=== PATIENT | female | born 1960 | race Caucasian/White ===

== ENCOUNTER 2019-08-11 09:00 | Inpatient (IN) | payer OTHER ==
--- NOTE | 2019-08-03 16:25 | HP ---
Amended report to enter cosigning physician on report. HISTORY AND PHYSICAL: DATE OF ADMISSION/SURGERY: 08/11/19 DATE OF OFFICE VISIT: 08/03/19 SURGEON: Jaja Slater MD* PROCEDURE: Left total hip arthroplasty. CHIEF COMPLAINT: Left hip pain. HISTORY OF PRESENT ILLNESS: Ms. Beltran is a 58-year-old female with end-stage osteoarthritis of the left hip. She has failed conservative treatment and elected to proceed with a left total hip arthroplasty. PAST MEDICAL HISTORY: Cervical cancer. PAST SURGICAL HISTORY: Cholecystectomy, left knee arthroscopy, cone biopsy, and a left total knee arthroplasty. CURRENT MEDICATIONS: 1. Magnesium. 2. Vitamin B12. 3. Vitamin D3. 4. Vitamin C. 5. Meloxicam 15 mg a day. ALLERGIES: No known drug allergies. FAMILY HISTORY: Hypertension and coronary artery disease. SOCIAL HISTORY: She is a 58-year-old female. She lives with her . She does not smoke. REVIEW OF SYSTEMS: A complete 14-point review of systems was reviewed with the patient and was all negative or noncontributory. She denies a history of DVT, PE, hepatitis, HIV, or anesthesia problems. PHYSICAL EXAMINATION GENERAL: She is well developed, well nourished, in no acute distress. VITAL SIGNS: She stands 65 inches tall, weighs 256 pounds. Her blood pressure is 128/90, her heart rate is 84. HEENT: Normocephalic, atraumatic. NECK: Supple. No palpable lymph nodes. PULMONARY: The lungs are clear to auscultation bilaterally. CARDIO: Regular rate and rhythm. Strong S1, S2. ABDOMEN: Soft, nontender, nondistended. MUSCULOSKELETAL: Left lower extremity: The skin is intact. There are no open wounds or abrasions. She walks with an antalgic-type gait favoring her left hip. She has decreased internal and external rotation of the left hip. She is able to dorsiflex and plantar flex. She has a 2+ dorsalis pedis pulse and intact sensation. NEUROLOGICAL: She is alert and oriented x3. ASSESSMENT AND PLAN: Ms. Beltran is a 58-year-old female with end-stage osteoarthritis of the left hip. She has failed conservative treatment and elected to proceed with a left total hip arthroplasty. The surgery is scheduled for 08/11/[address] Slater discussed the risks and benefits of the surgery at today's visit and all of her questions were answered. She will follow up with Dr. Slater 2 weeks after the surgery. NARCISA DOSS [id number]/[facility] #: [id number] GIOVANNA
[~2019-08-11 09:00] MED LIST: Acetaminophen TAB* 325 MG PO ONE; Buffered Lidocaine 1% SYRIN* 1 ML/SYRINGE INTRADERM ONE; Lactated Ringers 1000 ML Bag* 1,000 ML IV SCH; Tranexamic Acid 1,000 MG in NS 0.9% 50 ML* (outpatient use) IV SCH; celeCOXIB CAP* 200 MG PO ONE
[2019-08-11] MEDS ORDERED: celeCOXIB CAP* 200 MG ONE (09:06)
[2019-08-11] MEDS ORDERED: Acetaminophen TAB* 325 MG ONE (09:06)
[2019-08-11] MEDS ORDERED: ceFAZolin 2 GM PREMIX in ORs 2 GM/50 ML BAG ONE (09:07)
[2019-08-11] MEDS ORDERED: Midazolam* 1 MG/ML 2 ML VIAL (2 MG) ONE (10:19)
[2019-08-11] MEDS ORDERED: fentaNYL* 50 MCG/ML 2 ML VIAL (100 MCG VIAL) ONE (10:20)
[2019-08-11] MEDS ORDERED: Rocuronium* 10 MG/ML VIAL ONE ×2 (11:29→12:44)
[2019-08-11] MEDS ORDERED: ROPIVACAINE 5 MG/ML 30 ML BTL (0.5%) ONE ×2 (11:37→14:15)
[2019-08-11] MEDS ORDERED: Ondansetron INJ* 2 MG/ML VIAL ONE (11:51)
[2019-08-11] MEDS ORDERED: Dexamethasone IV* 4 MG/ML 1 ML (4 MG) ONE (11:51)
[2019-08-11] MEDS ORDERED: HYDROmorphone INJ1* 1 MG/ML SYRINGE ONE ×3 (12:10→14:56)
[2019-08-11] MEDS ORDERED: PROCHLORPERAZINE INJ 5 MG/ML 2 ML VIAL IV PRN (12:33)
[2019-08-11] MEDS ORDERED: oxyCODONE TAB* 5 MG TAB PO PRN ×2 (12:33→13:17)
[2019-08-11] MEDS ORDERED: diPHENhydraMINE IV* 50 MG/ML 1 ml VIAL (BENADRYL) IV PRN ×2 (12:33→13:17)
[2019-08-11] MEDS ORDERED: Naloxone* 0.4 MG/ML 1 ML VIAL IV PRN (12:33)
[2019-08-11] MEDS ORDERED: HYDROmorphone INJ1* 1 MG/ML SYRINGE IV PRN (12:33)
[2019-08-11] MEDS ORDERED: Metoprolol Tartrate IV* 1 MG/ML 5 ML VIAL ONE (12:38)
[2019-08-11] MEDS ORDERED: Magnesium Hydroxide LIQ* 30 ML UDC PO PRN (13:17)
[2019-08-11] MEDS ORDERED: Morphine INJ* 2 MG/ML 1 ML SYRINGE (TWO MG - NEW SYRINGE VERSION) IV PRN (13:17)
[2019-08-11] MEDS ORDERED: Cyclobenzaprine TAB* 10 MG PO PRN (13:17)
[2019-08-11] MEDS ORDERED: Polyethylene Glycol 3350* 17 GM PACKET PO PRN (13:17)
[2019-08-11] MEDS ORDERED: Ondansetron INJ* 2 MG/ML VIAL IV PRN (13:17)
[2019-08-11] MEDS ORDERED: diPHENhydraMINE PO* 25 MG PO PRN (13:17)
[2019-08-11] MEDS ORDERED: Ondansetron TAB* 4 MG PO PRN (13:17)
[2019-08-11] MEDS ORDERED: Glycopyrrolate IV* 0.2 MG/ML 1 ML VIAL ONE (14:12)
[2019-08-11] MEDS ORDERED: Neostigmine Methylsulfate* 3 MG/3 ML SYRINGE ONE (14:13)
[2019-08-11] MEDS ORDERED: Gabapentin CAP(*) 300 MG PO PRN (14:50)
[2019-08-11] MEDS: HYDROmorphone INJ1* 1 MG/ML SYRINGE IV PRN ×2 (14:57→15:10)
[2019-08-11] MEDS ORDERED: oxyCODONE TAB* 5 MG TAB ONE (15:13)
[2019-08-11] MEDS: Lactated Ringers 1000 ML Bag* 1,000 ML IV SCH (16:41)
[2019-08-11] MEDS: oxyCODONE/Acetamin 5/325 MG* TAB PO PRN (17:16)
[2019-08-11] MEDS: Ondansetron ODT TAB* 4 MG PO PRN (19:55)
--- NOTE | 2019-08-11 20:19 | OP ---
Operative Report - Blank - Operative Report Date of Operation: 08/11/19 Note: AMBER STILL 1960 Date Of Surgery: 08/11/19 Jaja Slater MD Senior Health Physics Technician: Teresa BREWSTER did help throughout the procedure with preparation of the hip, wound retraction, manipulation of the hip, and wound closure. Anesthesiologist: Dr. Jonas Anesthesia Type: General Preoperative Diagnosis: Left severe degenerative osteoarthritis of the hip Postoperative Diagnosis: As above Procedure Performed: Left Total Hip Arthroplasty with modifier for increased operative time due to morbid obesity Complications: None Specimen: Femoral head and acetabular reamings sent to pathology. Hardware used: This is uncemented Wallace total hip arthroplasty hardware for the femur a size 5 accolade II with 127 neck angle femoral component, for the acetabulum a size 48D trident II tritanium multihole shell, for the insert a size 32D trident X3 polyethylene insert, and for the femoral head a size 32 - 4 ceramic biolox V40 femoral head. Brief history/Indication: AMBER STILL was known in clinic and had a history of severe left hip pain. She failed conservative treatment with anti- inflammatories, pain pills, intra-articular injections and physical therapy. She elected to undergo left total hip arthroplasty due to continued pain and decreased quality of life. Radiographs showed severe end stage osteoarthritis of the hip with bone on bone contact. Informed consent was obtained from the patient. She understood the risks of surgery included but were not limited to: bleeding, infection, damage to nearby structures, intraoperative fracture, nerve palsy, failure of the hardware, early loosening, stiffness or loss of motion, dislocation, leg length discrepancy, anesthesia complications, stroke, heart attack, blood clot and . She wished to proceed. Intra-Operative findings: Intraoperatively the patient was noted to have severe loss of cartilage of the acetabulum and femoral head. The patient's morbidly obese body habitus significantly increased the operative time of this procedure , at least 60 additional minutes. Exposure, placement of implants and closure of the wound were complicated by her body habitus and operative time was lengthened. Description of the Procedure: AMBER STILL was identified in the preanesthesia unit. Her left hip was marked as the correct operative side. Informed consent was signed and placed in the chart. The patient was taken to the operating room and placed under anesthesia without complication. A grossman catheter was placed. The patient was placed on the peg board with all bony prominences well padded. The left lower extremity was prepped and draped in the usual sterile fashion. Preoperative time -out was made to correctly identify the patient, side and site. Appropriate intraoperative antibiotics were given within one hour of incision. A standard posterior incision was made and carried sharply down to the lateral fascia. There was 10cm of subcutaneous fat. A new 10 blade was used to make an incision in the fascia in line with the skin incision. A charnley retractor was placed. The piriformis and conjoined tendons were identified and elevated off the posterolateral femur using electrocautery. These were tagged with number 5 Ethibond. Next electrocautery was used to make a posterolateral capsular flap and this was tagged with number 5 Ethibonds. The hip was carefully dislocated. All portions of this approach and exposure were lengthened and took longer time due to the patient's morbid obesity. Lesser trochanter to the center of the femoral head was measured at 55 mm. The oscillating saw was used to make the femoral neck cut. The femoral head was carefully removed. The femur was retracted anteriorly and the acetabular retractors were placed. Long-handled knife was used to sharply remove any remaining labrum from the acetabular rim. The acetabulum was sequentially reamed up to a size 48. A bleeding subchondral bone bed was obtained. A trial liner was placed and had excellent fit and stability. A 48D cup with one screw was placed and had excellent stability with appropriate anteversion and abduction angle. A size 32D liner was impacted into the acetabular shell. The liner was checked for stability and was stable. Next attention was turned to preparation of the femoral canal. A canal finder was used to enter the proximal femur. The femoral canal was sequentially broached up to a size 5 femoral broach trial. A trial neck and 32 - 4 trial femoral head was chosen. Lesser trochanter to center of the femoral head measurement was satisfactory. The hip was reduced and taken through a range of motion. The hip was stable in all positions with good soft tissue tension and appropriate leg lengths. The hip was dislocated and all trials were removed. The final implant chosen was a accolade II size 5. This stem was impacted into the femoral canal without difficulty. The stem was stable with appropriate anteversion. The femoral head chosen was a 32 - 4 ceramic head. The head was impacted onto the femoral neck without difficulty. The final lesser trochanter to center of the femoral head measurement was satisfactory. The hip was reduced and taken through a range of motion. The hip was stable in all positions with good soft tissue tension and appropriate leg lengths. The hip was copiously irrigated with sterile saline. The previously tagged capsule and tendons were repaired to the posterolateral femur through two trochanteric drill holes. The lateral fascia layer was closed using number 1 vicryls. The rest of the incision was closed in a layered fashion using 0 and 2-0 vicryls. The skin was closed using 3-0 monocryl suture and Dermabond. Wound closure was more complex and took longer time due to the patient's morbid obesity. Sterile adaptic, 4x4s and paper tape was used to cover the incision. The patients anesthesia was reversed without difficulty. She was taken to the PACU in stable condition. Intended weight-bearing will be as tolerated with posterior hip precautions.
[2019-08-11] MEDS: ceFAZolin 1 GM ADVAN(*) 1 GM in NS 0.9% 50 ML* 50 ML IVPB SCH (20:23)
[2019-08-11] MEDS: Acetaminophen TAB* 325 MG PO SCH (21:29)
[2019-08-12] MEDS: Magnesium Hydroxide LIQ* 30 ML UDC PO SCH ×3 (00:26→20:03)
[2019-08-12] MEDS: Docusate CAP* 100 MG PO SCH ×3 (00:26→20:02)
[2019-08-12] MEDS: traMADol TAB* 50 MG PO PRN ×2 (00:43→11:13)
[2019-08-12] MEDS: oxyCODONE/Acetamin 5/325 MG* TAB PO PRN ×4 (02:00→20:01)
[2019-08-12] MEDS: Lactated Ringers 1000 ML Bag* 1,000 ML IV SCH ×2 (02:06→12:44)
[2019-08-12] MEDS: ceFAZolin 1 GM ADVAN(*) 1 GM in NS 0.9% 50 ML* 50 ML IVPB SCH ×2 (03:32→11:59)
[2019-08-12] MEDS: Acetaminophen TAB* 325 MG PO SCH ×3 (06:18→20:04)
[2019-08-12 06:40] LABS: Hematocrit 32 % (35-47); Hemoglobin 10.9 g/dL (12.0-16.0); Mean Platelet Volume 6.6 fL (7.4-10.4); Platelet Count 327 10^3/uL (150-450)
[2019-08-12 06:46] LABS: BUN/Creatinine Ratio 14.6 (8-20); Calcium 8.5 mg/dL (8.6-10.3); EGFR African American 86.3 (>60); EGFR Non-African American 71.4 (>60); Potassium 4.8 mmol/L (3.5-5.0)
[2019-08-12] MEDS: Apixaban* 2.5 MG TAB PO SCH ×2 (08:06→20:03)
[2019-08-12] MEDS: Vitamin THERAPEUTIC TAB PO SCH (08:06)
[2019-08-12] MEDS: Ondansetron ODT TAB* 4 MG PO PRN (11:11)
--- NOTE | 2019-08-12 12:52 | PN ---
Progress Note - Progress Note Date of Service: 08/12/19 SOAP: Subjective: [Pt was seen this morning sitting in chair. States that she is tired and has been a little dizzy today. She denies any chest pain or SOB, denies nausea or vomiting. She states that she has been slow to progress with PT and that she did not sleep well last night. ] Objective: [General: Pt is alert and oriented x3. NAD MSK, LLE: Dressing is c/d/i. +df/pf, calf soft and non tender. NVI, 2+ DP. Vital Signs Temp 97.7 F 08/12/19 11:14 Pulse 95 08/12/19 11:14 Resp 16 08/12/19 11:14 BP 126/45 08/12/19 11:14 Pulse Ox 100 08/12/19 11:14 Intake & Output 08/11/19 08/12/19 08/12/19 18:59 06:59 18:59 Intake Total 1188 502 9372 Output Total 715 500 Balance 1130 -35 790 Weight 251 lb 9.6 oz Intake: IV Fluids 50 980 LR 980 NS 50ML, Cefazolin 2G 50 IVPB 110 ABX - CEFAZOLIN 110 Oral 1080 680 200 Output: Urine 715 500 Other: Estimated Void Small ] Assessment: [POD 1 LTHA] Plan: [Eliquis 2.5 mg bid x 30 days Continue with PT Will evaluate tomorrow for possible discharge. ]
[2019-08-13] MEDS: oxyCODONE/Acetamin 5/325 MG* TAB PO PRN ×3 (04:03→12:23)
[2019-08-13] MEDS: Acetaminophen TAB* 325 MG PO SCH ×2 (05:41→12:32)
[2019-08-13 07:39] LABS: Hematocrit 28 % (35-47); Hemoglobin 9.7 g/dL (12.0-16.0); Mean Platelet Volume 6.3 fL (7.4-10.4); Platelet Count 279 10^3/uL (150-450)
--- NOTE | 2019-08-13 08:26 | PN ---
Progress Note - Progress Note Date of Service: 08/13/19 SOAP: Subjective: [Pt reports making some progress since yesterday. Slight dizziness when standing. L hip pain managed with po Percocet. Feels ready to go home later today after PT. Denies CP, SOB, nausea.] Objective: [A and O x 3, NAD. Seated eating breakfast. L hip dressing changed. Wound benign. Ecchymosis, no erythema or drainage. Calves soft, NT. Distal gross motor, NV function intact. Vital Signs: Temp Pulse Resp BP Pulse Ox 98.3 F 104 18 137/49 95 08/13/19 03:58 08/13/19 07:33 08/13/19 05:57 08/13/19 03:58 08/13/19 03:58 Laboratory Results - last 24 hr 08/13/19 07:12 Hgb 9.7 L Hct 28 L Plt Count 279 MPV 6.3 L ] Assessment: [58 you female s/p L DIMPLE POD#2] Plan: [PT Kamilla for DVT prophylaxis Percocet for pain Plan to D/C today with services F/U with Dr. Slater in 2 weeks]
[2019-08-13] MEDS: Magnesium Hydroxide LIQ* 30 ML UDC PO SCH (09:04)
[2019-08-13] MEDS: Vitamin THERAPEUTIC TAB PO SCH (09:05)
[2019-08-13] MEDS: Docusate CAP* 100 MG PO SCH (09:05)
[2019-08-13] MEDS: Apixaban* 2.5 MG TAB PO SCH (09:07)
[2019-08-13 11:17] VITALS: BP 128/58
--- NOTE | 2019-08-15 09:30 | DS ---
DISCHARGE SUMMARY: DATE OF ADMISSION: 08/11/19 DATE OF DISCHARGE: 08/13/19 ADMITTING PHYSICIAN: Jaja Slater MD * (DICTATED BY NARCISA VU) ADMITTING DIAGNOSES: 1. Left hip osteoarthritis. 2. History of cervical cancer. DISCHARGE DIAGNOSES: 1. Status post left total hip arthroplasty. 2. History of cervical cancer. PROCEDURE: Left total hip arthroplasty. CONSULTANTS: Physical Therapy and Occupational Therapy. BRIEF HISTORY: Ms. Beltran is a 58-year-old female with severe degenerative osteoarthritis of her left hip. She failed conservative treatment measures and elected to undergo a left total hip arthroplasty on 08/11/[address] Slater. HOSPITAL COURSE: Ms. Beltran was admitted to [facility] on 08/11/19. She underwent an uncomplicated left total hip arthroplasty. Postoperatively, she recovered on the short-stay surgical unit. Her Quintana catheter was removed on postoperative day 1 and she was able to urinate on her own. She advanced to a regular diet without difficulty. Her pain was well controlled with Percocet and she was restarted on home medications. Her vital signs and labs remained stable. She was able to bear weight as tolerated on the left lower extremity. She advanced appropriately with physical therapy and occupational therapy. Her DVT prophylaxis was Eliquis 2.5 mg b.i.d. By postoperative day #2, she was orthopedically and medically stable for discharge home with services. PHYSICAL EXAMINATION: General: On examination, the patient is noted to be calm and cooperative, in no acute distress. She is alert and oriented x3. Vital Signs: On day of discharge, temperature 98.3 degrees Fahrenheit, pulse rate 104, respiratory rate 16, O2 sat 95% on room air, blood pressure 137/49. Extremities: Examination of her left lower extremity demonstrates a dressing overlying the right hip, which is clean, dry, and intact. There is minimal blessing -incisional ecchymosis. Distally, she has +2 palpable DP pulse, 5/5 ankle dorsiflexion and plantar flexion. Sensation is intact to light touch. LABORATORY DATA: On day of discharge, hemoglobin 9.7 and hematocrit 28. RADIOGRAPHS: Postoperative radiographs of the left hip demonstrate a left total hip arthroplasty with satisfactory prosthesis placement and no acute bony abnormalities. DISCHARGE MEDICATIONS: 1. Magnesium. 2. Vitamin B12. 3. Vitamin D3. 4. Vitamin C. 5. Percocet 5/325 mg 1 to 2 tabs q.4 to 6 hours p.r.n. pain. 6. Eliquis 2.5 mg b.i.d. for 30 days. 7. Oxycodone 10 mg q.4 hours for breakthrough pain. 8. Colace 100 mg p.o. t.i.d. p.r.n. constipation. CONDITION ON DISCHARGE: Stable. DISCHARGE INSTRUCTIONS: Ms. Beltran is a 58-year-old female, postoperative day #2 status post left total hip arthroplasty, which was uncomplicated. She is orthopedically and medically stable to be discharged home with services. She has stable vital signs and labs. She will take 2.5 mg of Eliquis b.i.d. for DVT prophylaxis and pain will be managed with Percocet and oxycodone. She will remain weightbearing as tolerated on the left lower extremity with posterior hip precautions. She will have home physical therapy twice a day. She will follow up in the office with Dr. Slater in approximately 14 days for incision check. She was instructed to call Dr. Slater or go immediately to the ER should she develop any new fever, chills, incision pain, redness, or drainage. She was instructed to go immediately to the ER should she develop chest pain or shortness of breath. NARCISA VU [id number]/[facility] #: [id number] MTDD
== END 2019-08-13 14:39 | disposition home health service (06) | DRG 301 ==
LOC: OR 09:00 → SSU 13:17 → OBSVTOIN 13:20
PROVIDERS: ADMIT Orthopaedic Surgery Adult Reconstructive Orthopaedic Surgery; ATTEND Orthopaedic Surgery Adult Reconstructive Orthopaedic Surgery
PROC: 0SRB04A Replacement of Left Hip Joint with Ceramic on Polyethylene Synthetic Substitute, Uncemented, Open Approach (ICD-10-PCS; principal; 2019-08-11 12:00)
DX: M16.12 Unilateral primary osteoarthritis, left hip (principal); Z68.41 Body mass index [BMI] 40.0-44.9, adult; Z96.652 Presence of left artificial knee joint; R42 Dizziness and giddiness; E66.01 Morbid (severe) obesity due to excess calories; Z85.41 Personal history of malignant neoplasm of cervix uteri; Z79.899 Other long term (current) drug therapy; Z28.21 Immunization not carried out because of patient refusal
CPT/HCPCS: 36415; 80048; 85014; 85018; 85049; 88304; 88311; A9270-GY; C1713; C1776; J0690; J1100; J1170; J2250; J2405; J2710; J2795; J3010; J3490